=== PATIENT | male | born 1970 | race Caucasian/White ===

== ENCOUNTER 2020-09-25 09:47 | Emergency (ER) | payer SELFPAY ==
[~2020-09-25] VITALS: Ht 188 cm; Wt 95.5 kg
--- NOTE | 2020-09-25 10:10 | PHYS DOC ---
Past History Past Medical History: A-Fib (Paroxysmal) Past Surgical History: Other (Left bicep tendon repair x2) Adult General Chief Complaint Chief Complaint: UPPER EXTREMITY PAIN HPI HPI Patient is a 50-year-old male who presents with left upper extremity pain. Has history of complicated left bicep tendon repair and subsequent rupture. Reports he was helping family members carry heavy tool bench weighing greater than 50 pounds, was carrying this with both upper extremities and supinated position when he heard a pop to left shoulder which was consistent with prior bicep tendon rupture injury. He subsequently reported to our ER for evaluation in fear that he re-tore his previously surgical fixed biceps tendon. En route, he called his PCP and Ortho in [place] where he resides and has an MRI scheduled for this upcoming when he is planned to travel back home Review of Systems Review of Systems All other 15-point systems were reviewed and found to be within normal limits, except as documented in this note. Allergies Allergies Allergies Coded Allergies Type Severity Reaction Last Updated Verified hydrocodone Allergy Unknown 09/25/20 Yes promethazine Allergy Unknown 09/25/20 Yes tramadol Allergy Unknown 09/25/20 Yes Physical Exam Physical Exam Constitutional: Well developed, well nourished, no acute distress, non-toxic appearance. [] HENT: Normocephalic, atraumatic, bilateral external ears normal, oropharynx moist, no oral exudates, nose normal. [] Eyes: PERRLA, EOMI, conjunctiva normal, no discharge. [] Neck: Normal range of motion, no tenderness, supple, no stridor. [] Cardiovascular:Heart rate regular rhythm, no murmur [] Lungs & Thorax: Bilateral breath sounds clear to auscultation [] Abdomen: Bowel sounds normal, soft, no tenderness, no masses, no pulsatile masses. [] Skin: Warm, dry, no erythema, no rash. [] Back: No tenderness, no CVA tenderness. [] Extremities: No cyanosis, no clubbing, no edema. ROM decreased with supination of LUE, prior well-healed scar from surgical intervention of LUE consistent with bicep tendon head repair, Positive jessica sign Neurologic: Alert and oriented X 3, normal motor function, normal sensory function, no focal deficits noted. [] Psychologic: Affect normal, judgement normal, anxious normal. [] Current Patient Data Vital Signs Vital Signs Date Time Temp Pulse Resp B/P (MAP) Pulse Ox O2 Delivery O2 Flow Rate FiO2 09/25/20 10:34 75 18 103/56 (72) 100 EKG EKG [] Radiology/Procedures Radiology/Procedures PROCEDURE: SHOULDER 2+V LEFT Left shoulder 3 views. HISTORY: Biceps tendon injury 3 views were taken of the left shoulder. There is an AC joint separation or the patient's had resection of the distal clavicle. There is no acute fracture. An avulsion is not identified. IMPRESSION: 1. Cephalad displacement of the clavicle consistent with an AC separation, although there is blunting of the distal clavicle and a previous distal clavicle resection is possible. 2. No glenohumeral dislocation. 3. No acute fracture or avulsion. Electronically signed by: Nolberto Mccarty MD (09/25/2020 10:27 AM) [facility] Heart Score Risk Factors: Risk Factors: DM, Current or recent (<one month) smoker, HTN, HLP, family history of CAD, obesity. Risk Scores: Risk Factors: DM, Current or recent (<one month) smoker, HTN, HLP, family history of CAD, obesity. Course & Med Decision Making Course & Med Decision Making Pertinent Labs and Imaging studies reviewed. (See chart for details) Discussed most likely diagnosis of repeat bicep tendon pathology, likely tear based on physical examination findings. Patient given sling, educated on supportive care, and given extremely short term narcotic RX for severe pain use only. He is established with same ortho who performed prior surgery, has contacted him and has MRI scheduled on I educated patient on strict return precautions for his remaining time in [place] visiting family prior to travel back to [place] where he lives this upcoming week. All questions and concerns addressed prior to ED departure in stable condition Dragon Disclaimer Dragon Disclaimer This electronic medical record was generated, in whole or in part, using a voice recognition dictation system. Departure Departure: Impression: Primary Impression: Injury of left shoulder and upper arm Disposition: 01 DC HOME SELF CARE/HOMELESS Condition: STABLE Referrals: PCP,NO (PCP) Patient Instructions: Acetaminophen; Oxycodone tablets, Biceps Tendon Disruption (Proximal) with [facility] Additional Instructions: As discussed prior to ER departure, please ensure you call your primary care physician and prior orthopedic surgeon to ensure outpatient follow-up this upcoming week. You mentioned you have a tentative MRI scheduled this upcoming , I feel this is beneficial. Please ensure this is scheduled to assess integrity of your previously repaired biceps tendon of the left upper extremity You were prescribed Percocet today, you were educated on the risks and benefits of receiving such a medication for severe pain only. Please use sparingly as indicated on bottle instructions to ensure safe use If any concerning signs or symptoms present prior to traveling back home to [place] and following up in outpatient setting please do not hesitate to come back for repeat examination/evaluation It was a pleasure to take care of you and I wish you a speedy recovery Scripts Oxycodone HCl/Acetaminophen (Percocet 5-325 mg Tablet) 1 Each Tablet 0.5 TAB PO PRN BID PRN for SEVERE PAIN 7-10 MDD 2 Tablet(s) for 5 Days, #5 TAB 0 Refills Prov: GERI MCCOLLUM DO 09/25/20 GERI MCCOLLUM DO Sep 25, 2020 10:10
--- NOTE | 2020-09-25 10:30 | RAD ---
Left shoulder 3 views. HISTORY: Biceps tendon injury 3 views were taken of the left shoulder. There is an AC joint separation or the patient's had resection of the distal clavicle. There is no acute fracture. An avulsion is not identified. IMPRESSION: 1. Cephalad displacement of the clavicle consistent with an AC separation, although there is blunting of the distal clavicle and a previous distal clavicle resection is possible. 2. No glenohumeral dislocation. 3. No acute fracture or avulsion. Electronically signed by: Nolberto Mccarty MD (09/25/2020 10:27 AM) [facility]
[2020-09-25 10:34] VITALS: BP 103/56
[2020-09-25] MEDS ORDERED: OXYC-325 PO (11:02)
== END 2020-09-25 11:11 | disposition home or self-care (01) ==
LOC: ER 09:47
DX: S49.92XA Unspecified injury of left shoulder and upper arm, initial encounter (principal); I48.91 Unspecified atrial fibrillation; Z88.5 Allergy status to narcotic agent; Z88.6 Allergy status to analgesic agent; Z88.8 Allergy status to other drugs, medicaments and biological substances; X50.9XXA Other and unspecified overexertion or strenuous movements or postures, initial encounter; Y93.89 Activity, other specified; Y92.89 Other specified places as the place of occurrence of the external cause; Y99.8 Other external cause status
CPT/HCPCS: 73030; 99283